=== PATIENT | female | born 1940 | race Caucasian/White ===

== ENCOUNTER 2023-09-20 16:12 | Emergency (ER) | payer OTHER ==
[~2023-09-20] VITALS: Ht 170.2 cm; Wt 66.4 kg
[2023-09-20 16:16] VITALS: BP 130/56; PULSE 78; RESP 16; TEMP 98.6; O2SAT 96
[2023-09-20] MEDS ORDERED: ibuprofen tablet 400 MG TABLET PO ONE (16:35)
[2023-09-20] MEDS ORDERED: ibuprofen 200mg tablet PO ONE (16:40)
[2023-09-20] MEDS ORDERED: LIDOcaine 1% 30ml preserv. free vial IJ ONE (17:30)
[2023-09-20] MEDS ORDERED: HYDR-3965 PO (17:56)
[2023-09-20] MEDS ORDERED: CEPH500C2 PO (17:56)
[2023-09-20] MEDS ORDERED: bacitracin 15gm ointment TP ONE (18:55)
[2023-09-20] MEDS ORDERED: HYDROcodone/acetaminophen 5mg/325mg tablet PO ONE (19:25)
[2023-09-22] MEDS ORDERED: HYDR-3965 PO (13:49)
== END 2023-09-20 20:03 | disposition home or self-care (01) ==
LOC: ER 16:13
DX: S42.294A Other nondisplaced fracture of upper end of right humerus, initial encounter for closed fracture (principal); S01.511A Laceration without foreign body of lip, initial encounter; Z87.81 Personal history of (healed) traumatic fracture; Z79.2 Long term (current) use of antibiotics; Z79.899 Other long term (current) drug therapy; W01.0XXA Fall on same level from slipping, tripping and stumbling without subsequent striking against object, initial encounter; Y93.89 Activity, other specified; Y92.89 Other specified places as the place of occurrence of the external cause; Y99.8 Other external cause status
CPT/HCPCS: 12011; 73030; 73200; 99284; A4565

== ENCOUNTER 2023-09-27 10:45 | Emergency (ER) | payer MEDICARE, OTHER ==
[~2023-09-27] VITALS: Ht 170.2 cm; Wt 70.4 kg
[~2023-09-27 10:45] MED LIST: CEPH500C2 PO; HYDR-3965 PO
[2023-09-27 10:54] VITALS: BP 130/53; PULSE 83; RESP 18; TEMP 97.6; O2SAT 97
== END 2023-09-27 11:22 | disposition home or self-care (01) ==
LOC: ER 10:46
DX: S01.511D Laceration without foreign body of lip, subsequent encounter (principal); Z48.02 Encounter for removal of sutures; Z87.81 Personal history of (healed) traumatic fracture; Z98.890 Other specified postprocedural states; Z79.2 Long term (current) use of antibiotics; X58.XXXD Exposure to other specified factors, subsequent encounter
CPT/HCPCS: 99284